=== PATIENT | male | born 1980 | race African-American/Black ===

== ENCOUNTER 2021-09-04 10:31 | Emergency (ER) | payer SELFPAY ==
[~2021-09-04] VITALS: Ht 188 cm; Wt 102.3 kg
[2021-09-04] MEDS ORDERED: IV NORMAL SALINE 1,000ML 1,000 ML IV SCH (11:15)
[2021-09-04] MEDS ORDERED: ONDANSETRON PF 4 MG/2 ML VIAL. IVP ONE (11:15)
--- NOTE | 2021-09-04 11:16 | PHYS DOC ---
General Adult EDM: Chief Complaint: ABDOMINAL PAIN HPI: HPI: Patient is a 41-year-old male who presents to the emergency department today for lower quadrant pain with nausea, vomiting and diarrhea that started 2 days ago. Patient rates his pain 10 out of 10. No radiation. No treatment prior to arrival. He had Covid in July. Patient reports that he has had some blood- tinged emesis today. Patient reports vomiting three times today. He denies any urinary symptoms, fevers, sick exposures, travel, cough, chest pain, shortness of breath. (ISABELA LANZA APRN) Review of Systems: Review of Systems: Constitutional: negative unless reported in HPI Eyes: negative unless reported in HPI HENT: negative unless reported in HPI Respiratory: negative unless reported in HPI Cardiovascular: negative unless reported in HPI GI: negative unless reported in HPI : negative unless reported in HPI Musculoskeletal: negative unless reported in HPI Integument: negative unless reported in HPI Neurologic: negative unless reported in HPI Endocrine: negative unless reported in HPI Lymphatic: negative unless reported in HPI Psychiatric: negative unless reported in HPI (ISABELA LANZA APRN) Current Medications: Current Meds: Current Medications Medications (Trade) Dose Ordered Sig/Wale Start Time Stop Time Status Last Admin Dose Admin Fentanyl Citrate (Fentanyl 2ml Vial) 50 mcg 1X ONCE 09/04/21 11:15 09/04/21 11:16 UNV Ondansetron HCl (Zofran) 4 mg 1X ONCE 09/04/21 11:15 09/04/21 11:16 UNV Sodium Chloride 1,000 ml @ 1,000 mls/hr Q1H 09/04/21 11:15 09/04/21 12:14 UNV (ISABELA LANZA APRN) Allergies: Allergies: Allergies Coded Allergies Type Severity Reaction Last Updated Verified No Known Drug Allergies 09/04/21 No (ISABELA LANZA APRN) Physical Exam: PE: Constitutional: Well developed, well nourished, no acute distress, non-toxic appearance. [] HENT: Normocephalic, atraumatic, bilateral external ears normal, oropharynx moist, no oral exudates, nose normal. [] Eyes: PERRL, EOMI, conjunctiva normal, no discharge. [] Neck: Normal range of motion, no stridor Cardiovascular:Heart rate regular rhythm, no murmur [] Lungs & Thorax: Bilateral breath sounds clear to auscultation [] Abdomen: Bowel sounds normal, soft, bilateral lower quadrant tenderness with palpation, negative Douglas sign, no rebound tenderness, no abdominal rigidity or guarding, no masses, no pulsatile masses. [] Skin: Warm, dry, no erythema, no rash. [] Back: No tenderness Extremities: No tenderness, no cyanosis, no clubbing, ROM intact, no edema. [] Neurologic: Alert and oriented X 3, normal motor function, normal sensory function, no focal deficits noted. [] Psychologic: Affect normal, judgement normal, mood normal. [] (ISABELA LANZA APRN) Current Patient Data: Labs: Laboratory Tests Test 09/04/21 11:00 09/04/21 11:36 09/04/21 12:12 White Blood Count 9.1 x10^3/uL Red Blood Count 5.51 x10^6/uL Hemoglobin 16.9 g/dL Hematocrit 49.9 % Mean Corpuscular Volume 91 fL Mean Corpuscular Hemoglobin 31 pg Mean Corpuscular Hemoglobin Concent 34 g/dL Red Cell Distribution Width 15.4 % Platelet Count 339 x10^3/uL Neutrophils (%) (Auto) 90 % Lymphocytes (%) (Auto) 8 % Monocytes (%) (Auto) 2 % Eosinophils (%) (Auto) 0 % Basophils (%) (Auto) 0 % Neutrophils # (Auto) 8.2 x10^3uL Lymphocytes # (Auto) 0.7 x10^3/uL Monocytes # (Auto) 0.2 x10^3/uL Eosinophils # (Auto) 0.0 x10^3/uL Basophils # (Auto) 0.0 x10^3/uL Sodium Level 134 mmol/L Potassium Level 3.1 mmol/L Chloride Level 96 mmol/L Carbon Dioxide Level 27 mmol/L Anion Gap 11 Blood Urea Nitrogen 10 mg/dL Creatinine 1.1 mg/dL Estimated GFR (Cockcroft-Gault) 88.8 BUN/Creatinine Ratio 9 Glucose Level 157 mg/dL Calcium Level 9.8 mg/dL Total Bilirubin 0.5 mg/dL Aspartate Amino Transf (AST/SGOT) 23 U/L Alanine Aminotransferase (ALT/SGPT) 43 U/L Alkaline Phosphatase 107 U/L Troponin I High Sensitivity 7 ng/L Total Protein 9.3 g/dL Albumin 5.1 g/dL Albumin/Globulin Ratio 1.2 Lipase 150 U/L Urine Collection Type Unknown Urine Color Yellow Urine Clarity Clear Urine pH 6.0 Urine Specific [place] >=1.030 Urine Protein 100 mg/dl Urine Glucose (UA) 100 mg/dL Urine Ketones (Stick) 80 mg/dL Urine Blood Mod Urine Nitrite Neg Urine Bilirubin Neg Urine Urobilinogen Dipstick 0.2 mg/dL Urine Leukocyte Esterase Neg Urine RBC 11-20 /HPF Urine WBC 1-4 /HPF Urine Squamous Epithelial Cells Few /LPF Urine Bacteria 0 /HPF Urine Hyaline Casts Occ /HPF Urine Mucus Mod /LPF Urine Opiates Screen Neg Urine Methadone Screen Neg Urine Barbiturates Neg Urine Phencyclidine Screen Neg Urine Amphetamine/Methamphetamine Neg Urine Benzodiazepines Screen Neg Urine Cocaine Screen Neg Urine Cannabinoids Screen Pos Urine Ethyl Alcohol Neg Influenza Type A (Rapid) Negative Influenza Type B (Rapid) Negative SARS-CoV-2 Antigen (Rapid) Negative Current Medications Medications (Trade) Dose Ordered Sig/Wale Route PRN Reason Start Time Stop Time Status Last Admin Dose Admin Sodium Chloride 1,000 ml @ 1,000 mls/hr Q1H IV 09/04/21 11:15 09/04/21 12:14 DC 09/04/21 11:17 Fentanyl Citrate (Fentanyl 2ml Vial) 50 mcg 1X ONCE IVP 09/04/21 11:15 09/04/21 11:22 DC 09/04/21 11:17 Ondansetron HCl (Zofran) 4 mg 1X ONCE IVP 09/04/21 11:15 09/04/21 11:22 DC 09/04/21 11:17 Iohexol (Omnipaque 300 Mg/ml) 75 ml 1X ONCE IV 09/04/21 11:30 09/04/21 11:31 DC 09/04/21 12:20 Fentanyl Citrate (Fentanyl 2ml Vial) 50 mcg 1X ONCE IVP 09/04/21 11:45 09/04/21 11:49 DC 09/04/21 11:46 Haloperidol Lactate (Haldol) 5 mg 1X ONCE IVP 09/04/21 12:00 09/04/21 12:08 DC 09/04/21 12:11 Potassium Chloride (Klor-Con) 40 meq 1X ONCE PO 09/04/21 12:30 09/04/21 12:31 DC Morphine Sulfate (Morphine 4mg Syringe) 4 mg 1X ONCE IV 09/04/21 13:00 09/04/21 13:01 DC 09/04/21 13:09 Hydralazine HCl (Apresoline) 10 mg 1X ONCE IV 09/04/21 13:00 09/04/21 13:01 DC 09/04/21 13:14 (ISABELA LANZA WINDOWS LAPTOP TECHNICIAN) EKG: EKG: EKG performed by ER staff at 1159 shows sinus rhythm with a rate of 75, QTC 436, no STEMI read by Dr. Chambers at 1200 [] (ISABELA LANZA WINDOWS LAPTOP TECHNICIAN) Radiology/Procedures: Radiology/Procedures: []PROCEDURE: CT ABD PELV W/ IV CONTRST ONLY EXAM: Abdomen and pelvis CT with intravenous contrast. HISTORY: Right lower quadrant pain. TECHNIQUE: Computed tomographic images of the abdomen and pelvis were obtained following the administration of intravenous contrast. Multiplanar reformatting was performed. *One or more of the following individualized dose reduction techniques were u tilized for this examination: 1. Automated exposure control. 2. Adjustment of the mA and/or kV according to patient size. 3. Use of iterative reconstruction technique. COMPARISON: None. FINDINGS: Evaluation of the lower thorax demonstrates no infiltrate or pleural effusion. No suspicious hepatic lesion is seen. There is minimal fatty infiltration along the falciform ligament. The gallbladder, pancreas, spleen and adrenal glands are unremarkable. There are nonobstructing left renal stones, the largest of which measures 5 mm. There is a 3 mm simple cyst within the medial right kidney and focal cortical scarring within the upper pole the left kidney. Follow-up is not routinely performed for simple cysts. There is no appendicitis. There is no bowel obstruction. There is colonic diverticulosis. There is circumferential wall thickening involving the colon, primarily at the level of the sigmoid colon. There is no significant surrounding inflammatory stranding. This is likely due to the sequela of prior infl ammation. There is no convincing acute diverticulitis. The bladder is unremarkable. The left testis appears to be within the inferior aspect of the inguinal canal. The aorta is normal in caliber. There is no lymphadenopathy. There is no acute or suspicious osseous finding. IMPRESSION: 1. Extensive colonic diverticulosis. There is no convincing diverticulitis 2. Circumferential wall thickening involving the colon, primarily at the level of the sigmoid colon. This is likely due to sequela of chronic inflammation given the absence of significant surrounding inflammatory changes. However, the possibility of segmental colitis involving the sigmoid colon is not excluded. 3. Left nephrolithiasis and scarring involving the upper pole the left kidney. 4. Left testis within the inferior inguinal canal. Correlate with physical exam findings. Electronically signed by: Leyla Mittal MD (09/04/2021 12:37 PM) [id number] DICTATED AND SIGNED BY: LELYA MITTAL MD DATE: 09/04/21 1230 CC: ISABELA LANZA APRN; PCP,NO ~MTH0 0 (ISABELA LANZA APRN) Heart Score: C/O Chest Pain: N/A Risk Factors: Risk Factors: DM, Current or recent (<one month) smoker, HTN, HLP, family his tory of CAD, obesity. Risk Scores: Score 0 - 3: 2.5% MACE over next 6 weeks - Discharge Home Score 4 - 6: 20.3% MACE over next 6 weeks - Admit for Clinical Observation Score 7 - 10: 72.7% MACE over next 6 weeks - Early Invasive Strategies (ISABELA LANZA APRN) Course & Med Decision Making: Course & Med Decision Making Pertinent Labs and Imaging studies reviewed. (See chart for details) Patient presents to the emergency department for right lower quadrant pain with nausea, vomiting and diarrhea that started 2 days ago. Work-up in the ER consisted of blood work, urinalysis,covid/flu testing and CT imaging of abdomen and pelvis. Patient treated with IV fluids, nausea medication and multiple doses of pain medication. Patient may be experiencing hyperemesis due to cannabinoid use and he was given haldol after reviewing ekg. CBC unremarkable. Potassium 3.1 and this was replaced in ER. Advised patient on foods rich in potassium. UA unremarkable, UDS positive for marijuana. Last smoked marijuana 2 days ago prior to symptoms. CT abdomen/pelvis showed possible colitis, diverticulosis without diverticulitis, and a undescended left testicle in inguinal canal. I discussed these findings with patient he reports that he was unaware that his testicle was not descended and this is a new finding for him. Upon physical assessment, patients left testicle is not descended. Ultrasound ordered to rule out torsion. Patient does not have tenderness with palpation of groin but does have bilateral lower abdominal tenderness. He does have tenderness with palpation of testicle but there is no redness noted.Patients blood pressure is elevated in the ER, he reports taking lisinopril at home and is unsure of the dosage, he reports that he ran out of his medications. He was treated with hydralazine. Due to undescended testicle and intractable abdominal pain with nausea and vomiting. Patient will need to be transferred to [facility] and evaluated by urology. I discussed these findings with Dr. Leon who agreed to admit the patient under his services. I discussed these findings with patient and and they are agreeable to care plan. (ISABELA LANZA APRN) Course & Med Decision Making I was the Attending physician on the above date of service of this patient. This patient was evaluated, examined, treated, and dispositioned from the emergency department by the mid-level practitioner. I reviewed ER work-up and agreed to need for transfer for neurology consultation giving intractable nausea and vomit with retracted left-sided testicle. Patient also has elevated blood pressure readings though obvious endorgan damage, has not been able to take his home medications. These were restarted today prior to transfer Electronically signed, Katie Chmabers DO (KATIE CHAMBERS DO) Jesse Disclaimer: Jesse Disclaimer: This electronic medical record was generated, in whole or in part, using a voice recognition dictation system. (ISABELA LANZA APRN) Departure Departure: Impression: Primary Impression: Intractable abdominal pain Additional Impressions: Undescended left testicle Nausea & vomiting Qualified Codes: R11.2 - Nausea with vomiting, unspecified Hypertension Qualified Codes: I10 - Essential (primary) hypertension Disposition: 02 SHORT TERM HOSPITAL Condition: GOOD ISABELA LANZA APRN Sep 04, 2021 11:16 KATIE CHAMBERS DO Sep 05, 2021 07:57
[2021-09-04 11:27] LABS: BASO % 0 % (0-3); EOS % 0 % (0-3); HEMATOCRIT 49.9 % (39.0-53.0); HEMOGLOBIN 16.9 g/dL (13.0-17.5); LYMPH # 0.7 x10^3/uL (1.0-4.8); LYMPH % 8 % (24-48); MEAN CORPUSCULAR HEMOGLOBIN 31 pg (25-35); MEAN CORPUSCULAR HGB CONC 34 g/dL (31-37); MEAN CORPUSCULAR VOLUME 91 fL (79-100); MONO # 0.2 x10^3/uL (0.0-1.1); MONO % 2 % (0-9); NEUT # 8.2 x10^3uL (1.8-7.7); NEUT % 90 % (31-73); PLATELET COUNT 339 x10^3/uL (140-400); RED BLOOD COUNT 5.51 x10^6/uL (4.30-5.70); RED CELL DISTRIBUTION WIDTH 15.4 % (11.5-14.5); WHITE BLOOD COUNT 9.1 x10^3/uL (4.0-11.0)
[2021-09-04] MEDS ORDERED: IOHEXOL 300 MG/ML 75 ML VIAL. IV ONE (11:30)
[2021-09-04 11:35] LABS: CALCIUM 9.8 mg/dL (8.5-10.1); CREATININE 1.1 mg/dL (0.7-1.3); GFR 88.8; POTASSIUM 3.1 mmol/L (3.5-5.1)
[2021-09-04 11:41] LABS: ALBUMIN 5.1 g/dL (3.4-5.0); ALBUMIN/GLOBULIN RATIO 1.2 (1.0-1.7); TOTAL BILIRUBIN 0.5 mg/dL (0.2-1.0); TOTAL PROTEIN 9.3 g/dL (6.4-8.2)
[2021-09-04 11:58] LABS: AMPHETAMINE/METHAMPHETAMINE NEG (NEG); BARBITURATES NEG (NEG); BENZODIAZEPINES NEG (NEG); CANNABINOIDS POS (NEG); COCAINE NEG (NEG); METHADONE NEG (NEG); OPIATES NEG (NEG); PHENCYCLIDINE NEG (NEG)
[2021-09-04] MEDS ORDERED: HALOPERIDOL LACT 5 MG/ML VIAL. IVP ONE (12:00)
[2021-09-04 12:09] LABS: CLARITY,URINE CLEAR; COLOR,URINE YELLOW
[2021-09-04 12:10] LABS: BACTERIA,URINE 0 /HPF (0-FEW); BILIRUBIN,URINE NEG (NEG); GLUCOSE,URINE 100 mg/dL (NEG); HYALINE CASTS, URINE OCC /HPF; NITRITE,URINE NEG (NEG); SQUAMOUS EPITHELIAL CELL,UR FEW /LPF; UROBILINOGEN,URINE 0.2 mg/dL (0.2 mg/dL)
[2021-09-04] MEDS ORDERED: POTASSIUM CHLORIDE 20 MEQ TABLET.ER. PO ONE (12:30)
--- NOTE | 2021-09-04 12:39 | RAD ---
EXAM: Abdomen and pelvis CT with intravenous contrast. HISTORY: Right lower quadrant pain. TECHNIQUE: Computed tomographic images of the abdomen and pelvis were obtained following the administ ration of intravenous contrast. Multiplanar reformatting was performed. *One or more of the following individualized dose reduction techniques were utilized for this examina tion: 1. Automated exposure control. 2. Adjustment of the mA and/or kV according to patient size. 3. Use of iterative reconstruction technique. COMPARISON: None. FINDINGS: Evaluation of the lower thorax demonstrates no infiltrate or pleural effusion. No suspiciou s hepatic lesion is seen. There is minimal fatty infiltration along the falciform ligament. The gallb ladder, pancreas, spleen and adrenal glands are unremarkable. There are nonobstructing left renal sto shira, the largest of which measures 5 mm. There is a 3 mm simple cyst within the medial right kidney a nd focal cortical scarring within the upper pole the left kidney. Follow-up is not routinely performe d for simple cysts. There is no appendicitis. There is no bowel obstruction. There is colonic diverticulosis. There is ci rcumferential wall thickening involving the colon, primarily at the level of the sigmoid colon. There is no significant surrounding inflammatory stranding. This is likely due to the sequela of prior inf lammation. There is no convincing acute diverticulitis. The bladder is unremarkable. The left testis appears to be within the inferior aspect of the inguinal canal. The aorta is normal in caliber. There is no lymphadenopathy. There is no acute or suspicious osseous finding. IMPRESSION: 1. Extensive colonic diverticulosis. There is no convincing diverticulitis 2. Circumferential wall thickening involving the colon, primarily at the level of the sigmoid colon. This is likely due to sequela of chronic inflammation given the absence of significant surrounding in flammatory changes. However, the possibility of segmental colitis involving the sigmoid colon is not excluded. 3. Left nephrolithiasis and scarring involving the upper pole the left kidney. 4. Left testis within the inferior inguinal canal. Correlate with physical exam findings. Electronically signed by: Leyla Hui MD (09/04/2021 12:37 PM) [id number]
[2021-09-04] MEDS ORDERED: MORPHINE SULFATE 4 MG/ML DISP.SYRIN. IV ONE ×2 (13:00→14:00)
[2021-09-04] MEDS ORDERED: hydrALAZINE 20 MG/ML VIAL. IV ONE ×2 (13:00→14:30)
[2021-09-04 13:01] LABS: INFLUENZA A PATIENT NEGATIVE (NEGATIVE); INFLUENZA B PATIENT NEGATIVE (NEGATIVE)
--- NOTE | 2021-09-04 13:52 | RAD ---
INDICATION: Reason: undescended left testicle / Spl. Instructions: / History: COMPARISON: CT from same day. TECHNIQUE: Grayscale, color and spectral doppler ultrasound images obtained of the scrotum. FINDINGS: Right Testicle: 41 x 33 x 21 mm. Vascular flow is identified. Left Testicle: 40 x 18 x 18 mm. Vascular flow is identified. Left testicle is more hypoechoic than right. Left testicle is displaced superiorly. IMPRESSION: * Left testicle is displaced superiorly into the inguinal canal region and appears more hypoechoic c ompared to the right. Vascular flow is seen to the bilateral testicles. This could be secondary to un descended testicle but given the relatively hypoechoic appearance of the left testicle compared to th e right edema within is not excluded. Electronically signed by: Romeo Ivan MD (09/04/2021 1:50 PM) [id number]
--- NOTE | 2021-09-04 14:14 | EKG ---
[address] [address] Test Date: 2021-09-04 Test Time: 11:59:34 Pat Name: GOPI MENSAH Department: Room: Gender: M Saute Chef: ASHLEE : 1980 Requested By: ISABELA LANZA Order Number: [id number] Reading MD: Royal Nazario Measurements Intervals [place] Rate: 75 P: 45 WI: 174 QRS: 42 QRSD: 98 T: 41 QT: 388 QTc: 436 Interpretive Statements SINUS RHYTHM NORMAL ECG RI6.01 No previous ECG available for comparison Electronically Signed On 09-06-2021 14:00:21 PROFESSIONAL BUILDER by Royal Nazario
[2021-09-04] MEDS ORDERED: HYDROmorphone PF 1 MG/ML DISP.SYRIN IVP ONE (14:30)
[2021-09-04] MEDS ORDERED: LISINOPRIL 20 MG TABLET PO ONE (15:45)
[2021-09-04 15:53] VITALS: BP 213/121
== END 2021-09-04 15:55 | disposition short-term general hospital (02) ==
LOC: ER 10:36
DX: Q53.10 Unspecified undescended testicle, unilateral (principal); R11.2 Nausea with vomiting, unspecified; R19.7 Diarrhea, unspecified; I10 Essential (primary) hypertension; Z20.822 Contact with and (suspected) exposure to COVID-19
CPT/HCPCS: 36415; 74177; 76870; 80053; 80307; 81001; 83690; 84484; 85025; 87428; 93005; 96361; 96374; 96375; 96376; 99285; J0360; J1170; J1630; J2270; J2405; J3010; J7030; Q9967